=== PATIENT | female | born 1985 | race Caucasian/White ===

== ENCOUNTER 2018-02-14 19:45 | Emergency (ER) | payer OTHER ==
[~2018-02-14] VITALS: Ht 154.9 cm; Wt 62.1 kg
[2018-02-14 19:51] VITALS: Ht 154.9 cm; Wt 62.1 kg
[2018-02-14 23:03] VITALS: BP 125/80
== END 2018-02-14 23:03 | disposition home or self-care (01) ==
LOC: ED 19:45
DX: S51.811A Laceration without foreign body of right forearm, initial encounter (principal); Z90.710 Acquired absence of both cervix and uterus; Z88.0 Allergy status to penicillin; W26.0XXA Contact with knife, initial encounter; Y93.89 Activity, other specified; Y92.89 Other specified places as the place of occurrence of the external cause; Y99.8 Other external cause status
CPT/HCPCS: 90715